=== PATIENT | female | born 1980 | race Two or more races ===

== ENCOUNTER 2019-02-06 15:41 | Outpatient (CLI) | payer OTHER | END 2019-02-06 17:19 | disposition home or self-care (01) | LOC: OBT 15:41 → L-D 15:42 → OBT 17:19 | DX: O36.8130 Decreased fetal movements, third trimester, not applicable or unspecified (principal); O09.523 Supervision of elderly multigravida, third trimester; Z3A.36 36 weeks gestation of pregnancy | CPT/HCPCS: 76815; 76818 ==

== ENCOUNTER 2019-02-28 09:50 | Inpatient (IN) | payer OTHER ==
[2019-02-28] MEDS ORDERED: LIDOCAINE 1% (MPF) 30 ML INJ INJ (10:30)
[2019-02-28] MEDS ORDERED: METHYLERGONOVINE 0.2 MG INJ IM ×2 (10:30→17:00)
[2019-02-28] MEDS ORDERED: CARBOPROST 250 MCG INJ IM ×2 (10:30→17:00)
[2019-02-28] MEDS ORDERED: MISOPROSTOL 200 MCG TAB PR ×2 (10:30→17:00)
[2019-02-28] MEDS ORDERED: BUTORPHANOL 2 MG INJ IV ×2 (10:30)
[2019-02-28] MEDS ORDERED: OXYTOCIN 30 UNITS/LR 500 ML IV ×2 (10:30→17:00)
[2019-02-28 10:56] LABS: ADD MAN DIFF? NO
[2019-02-28 10:58] LABS: ABNORMAL IP MESSAGE 1; BASOPHIL # 0.1 10^3/ul (0.0-0.1); BASOPHILS % 0.6 % (0.0-2.0); EOSINOPHILS # 0.1 10^3/ul (0.0-0.5); EOSINOPHILS % 0.7 % (0.0-7.0); HEMOGLOBIN 11.4 g/dl (12.0-16.0); LYMPHOCYTES # 2.1 10^3/ul (0.8-2.9); LYMPHOCYTES % 21.6 % (15.0-51.0); MEAN CORPUSCULAR HEMOGLOBIN 22.5 pg (29.0-33.0); MEAN CORPUSCULAR HGB CONC 30.8 g/dl (32.0-37.0); MEAN CORPUSCULAR VOLUME 73.1 fl (82.0-101.0); MONOCYTE # 0.4 10^3/ul (0.3-0.9); MONOCYTES % 4.3 % (0.0-11.0); NEUTROPHIL # 6.9 10^3/ul (1.6-7.5); NEUTROPHILS % 70.7 % (39.0-77.0); PLATELET COUNT 130 10^3/UL (140-415); RED BLOOD COUNT 5.06 10^6/ul (4.20-5.40); RED CELL DISTRIBUTION WIDTH 15.8 % (11.5-14.5)
[2019-02-28 10:58] LABS: WHITE BLOOD COUNT 9.7 10^3/ul (4.8-10.8)
[2019-02-28 11:01] LABS: POSITIVE DIFF @See below
[2019-02-28 11:18] LABS: INR 0.88; PT RATIO 0.9
[2019-02-28 11:19] LABS: PARTIAL THROMBOPLASTIN TIME 26.1 Sec (23.0-35.0)
[2019-02-28] MEDS ORDERED: KETOROLAC 30 MG INJ IV (12:00)
[2019-02-28] MEDS ORDERED: DIPHENHYDRAMINE 50 MG INJ IV (12:00)
[2019-02-28] MEDS ORDERED: ONDANSETRON 4 MG INJ IV (12:00)
[2019-02-28] MEDS ORDERED: HYDROmorphONE 0.5 MG/0.5 ML SYG IV ×2 (12:00)
[2019-02-28] MEDS ORDERED: NALOXONE (0.4 MG/ML) INJ IV (12:00)
[2019-02-28] MEDS ORDERED: FENTAnyl 2MCG/ML-ROPIV 0.2% 100 ML BAG EPI (12:00)
[2019-02-28] MEDS ORDERED: AMPICILLIN 2 GM/NS (PMX) 100 ML (13:03)
[2019-02-28] MEDS: LACTATED RINGER'S 1,000 ML IV ×3 (13:11→13:32)
[2019-02-28] MEDS: AMPICILLIN 2 GM/NS (PMX) 100 ML IV (13:14)
[2019-02-28 13:27] LABS: HEPATITIS B SURFACE ANTIGEN NEGATIVE (NEGATIVE)
[2019-02-28] MEDS: MINERAL OIL LIGHT 10 ML VIAL TOP (14:13)
[2019-02-28] MEDS: OXYTOCIN 30 UNITS/LR 500 ML IV ×2 (14:14→14:32)
[2019-02-28] MEDS ORDERED: ACETAMINOPHEN 325 MG TAB PO (17:00)
[2019-02-28] MEDS: IBUPROFEN 600 MG TAB PO (17:24)
[2019-02-28] MEDS: BENZOCAINE 20% 56 ML SPRAY TOP (17:24)
[2019-02-28] MEDS: DIBUCAINE 1% 30 GM OINT TOP (17:25)
[2019-02-28] MEDS: WITCH HAZEL/GLYCERIN PAD PR (17:25)
[2019-02-28] MEDS ORDERED: AMPICILLIN 1 GM/NS (PMX) 50 ML IV (17:30)
[2019-02-28] MEDS: LACTATED RINGER'S 1,000 ML IV* (18:51)
[2019-02-28] MEDS: SENNA/DOCUSATE NA (8.6MG/50MG) TAB PO (21:52)
[2019-02-28 22:04] LABS: RAPID PLASMA REAGIN NONREACTIVE (NR)
[2019-03-01] MEDS: LACTATED RINGER'S 1,000 ML IV* ×3 (00:41→16:41)
[2019-03-01] MEDS: IBUPROFEN 600 MG TAB PO ×4 (00:42→18:28)
[2019-03-01 08:38] LABS: ADD MAN DIFF? NO
[2019-03-01 08:47] LABS: WHITE BLOOD COUNT 12.1 10^3/ul (4.8-10.8)
[2019-03-01 08:47] LABS: ABNORMAL IP MESSAGE 1; BASOPHIL # 0.1 10^3/ul (0.0-0.1); BASOPHILS % 0.5 % (0.0-2.0); EOSINOPHILS # 0.1 10^3/ul (0.0-0.5); EOSINOPHILS % 0.7 % (0.0-7.0); HEMATOCRIT 31.4 % (37.0-47.0); HEMOGLOBIN 9.8 g/dl (12.0-16.0); LYMPHOCYTES # 2.8 10^3/ul (0.8-2.9); LYMPHOCYTES % 23.1 % (15.0-51.0); MEAN CORPUSCULAR HEMOGLOBIN 22.9 pg (29.0-33.0); MEAN CORPUSCULAR HGB CONC 31.2 g/dl (32.0-37.0); MEAN CORPUSCULAR VOLUME 73.4 fl (82.0-101.0); MONOCYTE # 0.5 10^3/ul (0.3-0.9); MONOCYTES % 3.9 % (0.0-11.0); NEUTROPHIL # 8.5 10^3/ul (1.6-7.5); NEUTROPHILS % 70.3 % (39.0-77.0); PLATELET COUNT 127 10^3/UL (140-415); RED BLOOD COUNT 4.28 10^6/ul (4.20-5.40); RED CELL DISTRIBUTION WIDTH 15.4 % (11.5-14.5)
[2019-03-01 08:57] LABS: POSITIVE DIFF @See below
[2019-03-01] MEDS: HYDROCODONE/APAP (5/325) TAB PO (10:51)
[2019-03-01] MEDS: SENNA/DOCUSATE NA (8.6MG/50MG) TAB PO ×2 (10:51→21:07)
[2019-03-01] MEDS: LANOLIN HPA 1 PKT TOP (19:44)
[2019-03-02] MEDS: IBUPROFEN 600 MG TAB PO ×3 (00:10→12:14)
[2019-03-02] MEDS: LACTATED RINGER'S 1,000 ML IV* ×2 (00:41→06:26)
[2019-03-02] MEDS: HYDROCODONE/APAP (5/325) TAB PO (04:02)
[2019-03-02] MEDS: DIPHTH/TET/ACEL PERTUSS (ADULT) 0.5 ML VIAL IM* (09:00)
[2019-03-02] MEDS: SENNA/DOCUSATE NA (8.6MG/50MG) TAB PO (10:22)
[2019-03-02] MEDS: BENZOCAINE 20% 56 ML SPRAY TOP (10:22)
== END 2019-03-02 14:00 | disposition home or self-care (01) | DRG 807 ==
LOC: OBT 09:50 → L-D 09:51 → OBT 10:15 → L-D 10:15 → PP1 15:53
PROVIDERS: Obstetrics & Gynecology
PROC: 10E0XZZ Delivery of Products of Conception, External Approach (ICD-10-PCS; principal; 2019-02-28)
PROC: 0KQM0ZZ Repair Perineum Muscle, Open Approach (ICD-10-PCS; 2019-02-28)
DX: O99.824 Streptococcus B carrier state complicating childbirth (principal); Z37.0 Single live birth; O70.1 Second degree perineal laceration during delivery; O69.81X0 Labor and delivery complicated by cord around neck, without compression, not applicable or unspecified; O77.0 Labor and delivery complicated by meconium in amniotic fluid; Z3A.39 39 weeks gestation of pregnancy
CPT/HCPCS: 62322; 85025; 85610; 85730; 86592; 86850; 86900; 86901; 87340